=== PATIENT | female | born 1995 | race Hispanic/Latino ===

== ENCOUNTER 2016-07-26 16:08 | Emergency (ER) | payer OTHER ==
[~2016-07-26 16:08] MED LIST: IBUP800T23 PO; METH0.2T53 PO; MOTR200T44 PO; PERC5TAB6 PO; ZOFR20TA PO
[2016-07-26] MEDS ORDERED: PRENTAB9 PO (16:36)
== END 2016-07-26 16:22 | disposition left against medical advice (07) ==
LOC: M ED 16:08
DX: Z53.8 Procedure and treatment not carried out for other reasons (principal)

== ENCOUNTER 2016-07-26 16:29 | Outpatient (CLI) | payer OTHER ==
[~2016-07-26] VITALS: Ht 162.6 cm; Wt 81.0 kg
[2016-07-26] MEDS ORDERED: PRENTAB9 PO (16:36)
[2016-07-26 16:44] VITALS: BP 122/65
[2016-07-26 17:20] LABS: MEAN CORPUSCULAR HEMOGLOBIN 29.4 pg (27.0-33.0); MEAN CORPUSCULAR VOLUME 89.2 fl (80.0-96.0); RED CELL DISTRIBUTION WIDTH 12.5 % (11.5-14.5); WHITE BLOOD COUNT 9.9 K/mm3 (4.0-10.0)
[2016-07-26 18:16] LABS: ALBUMIN 2.6 GM/DL (3.2-5.2); ALKALINE PHOSPHATASE 94 U/L (45-117); ALT/SGPT 26 U/L (12-78); ANION GAP 7 MEQ/L (8-16); AST/SGOT 21 U/L (15-37); BILIRUBIN,TOTAL 0.2 MG/DL (0.2-1.0); BLOOD UREA NITROGEN 9 MG/DL (7-18); CALCIUM LEVEL 8.5 MG/DL (8.5-10.1); CARBON DIOXIDE LEVEL 28 MEQ/L (21-32); CHLORIDE LEVEL 105 MEQ/L (98-107); CREATININE FOR GFR 0.55 MG/DL (0.55-1.02); GLOMERULAR FILTRATION RATE > 60.0 (>60); GLUCOSE, FASTING 93 MG/DL (70-105); POTASSIUM SERUM 4.1 MEQ/L (3.5-5.1); SODIUM LEVEL 140 MEQ/L (136-145); TOTAL PROTEIN 6.9 GM/DL (6.4-8.2)
== END 2016-07-26 18:27 | disposition home or self-care (01) ==
LOC: M LDO 16:29
PROVIDERS: ATTEND Obstetrics & Gynecology
DX: O99.89 Other specified diseases and conditions complicating pregnancy, childbirth and the puerperium (principal); M62.830 Muscle spasm of back; Z3A.27 27 weeks gestation of pregnancy

== ENCOUNTER 2016-10-06 15:42 | Outpatient (CLI) | payer OTHER ==
[~2016-10-06] VITALS: Ht 162.6 cm; Wt 85.0 kg
[~2016-10-06 15:42] MED LIST changes: +PRENTAB9 PO
[2016-10-06 15:51] VITALS: BP 134/63
== END 2016-10-06 17:10 | disposition home or self-care (01) ==
LOC: M LDO 15:42
PROVIDERS: ATTEND Obstetrics & Gynecology
DX: O47.1 False labor at or after 37 completed weeks of gestation (principal); Z3A.38 38 weeks gestation of pregnancy

== ENCOUNTER 2016-10-07 03:21 | Inpatient (IN) | payer OTHER ==
[~2016-10-07] VITALS: Ht 162.6 cm; Wt 85.0 kg
[2016-10-07] VITALS (35 sets, daily range): BP systolic 102–133; BP diastolic 53–80
[2016-10-07 05:18] LABS: MEAN CORPUSCULAR HEMOGLOBIN 25.5 pg (27.0-33.0); MEAN CORPUSCULAR HGB CONC 31.6 g/dl (32.0-36.5); MEAN CORPUSCULAR VOLUME 80.8 fl (80.0-96.0); RED CELL DISTRIBUTION WIDTH 14.5 % (11.5-14.5); WHITE BLOOD COUNT 10.2 K/mm3 (4.0-10.0)
[2016-10-07] MEDS ORDERED: FENTANYL 2MCG/ML ROPIVACAINE 0.2% IN 0.9% NACL 200ML IVBAG As Ordered ONE (06:31)
[2016-10-07] MEDS ORDERED: FENTANYL/ROPIVACAINE/NACL BAG 200 ML EPIDURAL SCH (07:15)
[2016-10-07] MEDS ORDERED: ONDANSETRON 4MG/2ML VIAL (J2405) IV PRN (07:15)
[2016-10-07] MEDS ORDERED: ePHEDrine SULFATE 25 MG/5 ML(5MG/ML) SYRINGE IV PRN (07:15)
[2016-10-07] MEDS ORDERED: diphenhydrAMINE INJ 50MG/ML VIAL (J1200) IV PRN (07:15)
[2016-10-07] MEDS ORDERED: NALOXONE INJ 0.4 MG/1 ML VIAL (J2310) IV PRN (07:15)
[2016-10-07] MEDS ORDERED: OXYTOCIN 30 UNITS IN 0.9% NaCl 500ML IV BAG (J2590) As Ordered ONE (07:17)
[2016-10-07] MEDS ORDERED: LR 1,000 ML IV SCH (13:31)
[2016-10-07] MEDS ORDERED: OXYTOCIN DRIP 30 UNITS in APPROPRIATE DILUENT 1 EA IV SCH ×2 (13:45→14:13)
[2016-10-07] MEDS ORDERED: DIBUCAINE 1% OINTMENT 30GM TOP PRN (14:15)
[2016-10-07] MEDS ORDERED: DOCUSATE SODIUM 100 MG CAP PO PRN (14:15)
[2016-10-07] MEDS ORDERED: METHYLERGONOVINE MALEATE 0.2 MG TAB PO PRN (14:15)
[2016-10-07] MEDS ORDERED: ACETAMINOPHEN 500 MG TAB PO PRN (14:15)
[2016-10-07] MEDS ORDERED: MEASLES,MUMPS,RUBELLA VACCINE INJ (MMR-II) (90707) SC SCH (14:15)
[2016-10-07] MEDS: IBUPROFEN 800 MG TAB PO PRN (20:34)
[2016-10-08] MEDS: IBUPROFEN 800 MG TAB PO PRN (04:49)
[2016-10-08 06:03] VITALS: BP 127/71
[2016-10-08] MEDS: PRENATAL VITAMIN TAB PO SCH (08:54)
[2016-10-08 18:04] VITALS: BP 121/74
[2016-10-08 20:37] VITALS: BP 121/74
[2016-10-09] MEDS: IBUPROFEN 800 MG TAB PO PRN (01:30)
[2016-10-09 06:13] VITALS: BP 139/71
[2016-10-09] MEDS ORDERED: ACET50TA PO (07:40)
[2016-10-09] MEDS ORDERED: NUPE1OIN2 TOP (07:40)
[2016-10-09] MEDS ORDERED: COLA100C3 PO (07:40)
[2016-10-09] MEDS ORDERED: IBUP-1114 PO (07:40)
--- NOTE | 2016-10-09 08:37 | DSES ---
DATE OF ADMISSION: 10/07/2016 DATE OF DISCHARGE: This lady is a 21-year-old, 3 now para 1, admitted at 38 and 1 weeks' of gestation in spontaneous labor, spontaneous vaginal delivery live male weighing 7 pounds 13 ounces, scores of 8 and 9 at 1 and 5 minutes, respectively. She did have an epidural. She does not have an episiotomy. She had no issues . We discussed phlebitis, cystitis, mastitis, endometritis, cellulitis, diet, exercise, pain management, perineal, breast and wound care. She is planning on using Nexplanon as a method of control when she gets her 6-week checkup. Presently, she is normocephalic, atraumatic. Neck with full range of motion. Pupils equal and reactive to light. Blood pressure is 139/71, respirations are 16, pulse is 78 and temperature 98.3. Distal pulses symmetric. No evidence of DVT, PE or superficial phlebitis. No wheezes or rhonchi. Chest is clear bilaterally to the bases. Uterus is 2 below. Lochia is moderate. Perineum is intact. She has no issues of urgency, frequency, incontinence. She has no nausea, vomiting, diarrhea or constipation. No rashes or lesions. No arthralgia or myalgia. No complaints of cough, wheezes, shortness of breath or dyspnea on exertion. No chest pain. She is not bleeding. She is neuro complete. She has no MANAGER OF NETWORK issues. PAST MEDICAL AND SURGICAL HISTORY: Unremarkable. SOCIAL HISTORY: She does not smoke, drink or abuse drugs. She is . No domestic violence. She was given her medications for . She is going to have Nexplanon at her 6-week checkup. She was discharged delivered improved and appointment scheduling.
[2016-10-09] MEDS: PRENATAL VITAMIN TAB PO SCH (09:31)
== END 2016-10-09 16:30 | disposition home or self-care (01) | DRG 775 ==
LOC: M LDO 03:21 → M LDI 04:13 → M OBS 15:43
PROVIDERS: ADMIT Obstetrics & Gynecology; ATTEND Obstetrics & Gynecology
PROC: 10E0XZZ Delivery of Products of Conception, External Approach (ICD-10-PCS; principal; 2016-10-07)
DX: O80 Encounter for full-term uncomplicated delivery (principal); Z37.0 Single live birth; Z3A.38 38 weeks gestation of pregnancy

== ENCOUNTER 2017-03-25 10:02 | Emergency (ER) | payer OTHER ==
[~2017-03-25] VITALS: Ht 162.6 cm; Wt 85.0 kg
[2017-03-25 10:02] VITALS: BP 126/62
[~2017-03-25 10:02] MED LIST changes: +ACET50TA PO; +COLA100C5 PO; +IBUP-1114 PO; +IBUP1TAB7 PO; -IBUP800T23 PO; +NUPE1OIN2 TOP; +PERC5TAB12 PO; -PERC5TAB6 PO
[2017-03-25] MEDS ORDERED: NORA0.35 (10:12)
[2017-03-25] MEDS ORDERED: NAPR500T PO (10:17)
[2017-03-25] MEDS ORDERED: CYCL10TA PO (10:17)
== END 2017-03-25 10:52 | disposition home or self-care (01) ==
LOC: M ED 10:02
DX: G89.29 Other chronic pain (principal); M54.5 Low back pain; F99 Mental disorder, not otherwise specified; Z79.899 Other long term (current) drug therapy; Z91.89 Other specified personal risk factors, not elsewhere classified; Z91.013 Allergy to seafood

== ENCOUNTER → 2017-04-07 | Outpatient (CLI) | payer OTHER ==
[~2017-04-07] MED LIST changes: +CYCL10TA PO; +NAPR500T PO; +NORA0.35
--- NOTE | 2017-04-07 08:55 | REP ---
MAXILLOFACIAL CT WITHOUT CONTRAST: HISTORY: Septal deviation. Minimal mucosal thickening is present in the left maxillary sinus. The remaining sinuses are clear. The osteomeatal units are patent. The middle and inferior nasal turbinates are partially paradoxical. There is very minimal deviation of the nasal septum to the right. A small spur is present arising from the left side of the nasal septum. The cribriform plate, medial rock of the orbits and optic canals are intact. The carotid canals form a segment of the posterolateral rock of the sphenoid sinus. The sphenoid sinus septa insert into the internal carotid canal rock. IMPRESSION: Sinus mucosal thickening as described above. Signed by Nishant Jacobsen MD 04/07/2017 08:59 A
== END ==
LOC: M RAD 07:09
PROVIDERS: ATTEND Otolaryngology
DX: J34.2 Deviated nasal septum (principal)

== ENCOUNTER 2017-09-08 11:32 | Emergency (ER) | payer OTHER | END 2017-09-08 12:17 | disposition home or self-care (01) | LOC: M ED 11:32 | DX: M62.830 Muscle spasm of back (principal); W00.9XXA Unspecified fall due to ice and snow, initial encounter; Y92.59 Other trade areas as the place of occurrence of the external cause; M54.9 Dorsalgia, unspecified; G89.29 Other chronic pain; F33.9 Major depressive disorder, recurrent, unspecified; Z88.8 Allergy status to other drugs, medicaments and biological substances; Z91.013 Allergy to seafood | CPT/HCPCS: 99282 ==

== ENCOUNTER 2018-03-27 09:59 | Emergency (ER) | payer OTHER ==
[2018-03-27] MEDS: ACETAMINOPHEN TAB 650MG DOSE (2X325MG) PO (10:37)
[2018-03-27 10:41] LABS: BASO % 0.3 % (0.0-1.0); EOS # 0.1 10^3/uL (0.0-0.50); EOS % 0.8 % (0.0-3.0); HEMOGLOBIN 10.7 g/dl (12.0-15.5); IMMATURE GRANULOCYTE % 1.5 % (0-3.0); LYMPH # 1.3 10^3/uL (1.5-6.5); LYMPH % 17.3 % (24.0-44.0); MEAN CORPUSCULAR HEMOGLOBIN 29.4 pg (27.0-33.0); MEAN CORPUSCULAR HGB CONC 34.5 g/dl (32.0-36.5); MEAN CORPUSCULAR VOLUME 85.2 fl (80.0-96.0); MONO # 0.8 10^3/uL (0.0-0.8); MONO % 10.2 % (0.0-5.0); NEUTROPHILS # 5.3 10^3/uL (1.8-7.7); NEUTROPHILS % 69.9 % (36.0-66.0); PLATELET COUNT, AUTOMATED 237 10^3/uL (150-450); RED BLOOD COUNT 3.64 10^6/uL (4.00-5.40); RED CELL DISTRIBUTION WIDTH 12.7 % (11.5-14.5); WHITE BLOOD COUNT 7.6 10^3/uL (4.0-10.0)
[2018-03-27 10:57] LABS: FIBRINOGEN 556 MG/DL (221-452); INR 1.03; PARTIAL THROMBOPLASTIN TIME 27.6 SECONDS (25.4-37.6); PROTHROMBIN TIME 13.6 SECONDS (12.1-14.4)
== END 2018-03-27 10:50 | disposition admitted as inpatient to this hospital (09) ==
LOC: M ED 09:59
DX: Z04.1 Encounter for examination and observation following transport accident (principal); O99.89 Other specified diseases and conditions complicating pregnancy, childbirth and the puerperium; R10.2 Pelvic and perineal pain; Z3A.29 29 weeks gestation of pregnancy; Z88.8 Allergy status to other drugs, medicaments and biological substances; Z91.013 Allergy to seafood
CPT/HCPCS: 85384

== ENCOUNTER 2018-03-27 11:01 | Outpatient (CLI) | payer OTHER | END 2018-03-27 17:00 | disposition home or self-care (01) | LOC: M LDO 11:01 | DX: Z04.3 Encounter for examination and observation following other accident (principal); O26.893 Other specified pregnancy related conditions, third trimester; R10.32 Left lower quadrant pain; Z3A.29 29 weeks gestation of pregnancy | CPT/HCPCS: G0463 ==

== ENCOUNTER 2018-05-05 06:11 | Outpatient (CLI) | payer OTHER ==
[2018-05-05 07:31] LABS: BEDSIDE GLUCOSE 89 MG/DL (70-105)
== END 2018-05-05 07:41 | disposition home or self-care (01) ==
LOC: M LDO 06:11
DX: O26.893 Other specified pregnancy related conditions, third trimester (principal); R10.2 Pelvic and perineal pain; O47.03 False labor before 37 completed weeks of gestation, third trimester; Z3A.35 35 weeks gestation of pregnancy
CPT/HCPCS: 59025

== ENCOUNTER 2018-05-26 05:03 | Inpatient (IN) | payer OTHER ==
[2018-05-26 07:04] LABS: BASO % 0.4 % (0.0-1.0); EOS % 0.5 % (0.0-3.0); HEMATOCRIT 32.6 % (36.0-47.0); HEMOGLOBIN 10.5 g/dl (12.0-15.5); IMMATURE GRANULOCYTE % 0.5 % (0-3.0); LYMPH # 1.6 10^3/uL (1.5-6.5); LYMPH % 19.9 % (24.0-44.0); MEAN CORPUSCULAR HEMOGLOBIN 25.7 pg (27.0-33.0); MEAN CORPUSCULAR HGB CONC 32.2 g/dl (32.0-36.5); MEAN CORPUSCULAR VOLUME 79.9 fl (80.0-96.0); MONO # 0.7 10^3/uL (0.0-0.8); MONO % 8.8 % (0.0-5.0); NEUTROPHILS # 5.6 10^3/uL (1.8-7.7); NEUTROPHILS % 69.9 % (36.0-66.0); PLATELET COUNT, AUTOMATED 205 10^3/uL (150-450); RED BLOOD COUNT 4.08 10^6/uL (4.00-5.40); RED CELL DISTRIBUTION WIDTH 14.2 % (11.5-14.5); WHITE BLOOD COUNT 7.9 10^3/uL (4.0-10.0)
[2018-05-26] MEDS: LACTATED RINGER'S 1000 ML IV (07:19)
[2018-05-26] MEDS ORDERED: FENTANYL 2MCG/ML ROPIVACAINE 0.2% IN 0.9% NACL 200ML IVBAG As Ordered (07:45)
[2018-05-26] MEDS ORDERED: OXYTOCIN 30 UNITS IN 0.9% NaCl 500ML IV BAG (J2590) As Ordered (07:54)
[2018-05-26] MEDS: LR 1,000 ML IV ×2 (08:28→16:24)
[2018-05-26] MEDS ORDERED: REFRIGERATOR IV KEYS XX (09:15)
[2018-05-26] MEDS: FENTANYL/ROPIVACAINE/NACL BAG 200 ML EPIDURAL (09:15)
[2018-05-26] MEDS ORDERED: NALOXONE INJ 0.4 MG/1 ML VIAL (J2310) IV (09:15)
[2018-05-26] MEDS ORDERED: EPIDURAL COMMENT XX (09:15)
[2018-05-26] MEDS ORDERED: EPIDURAL/PCA KEYS XX (09:15)
[2018-05-26] MEDS ORDERED: ONDANSETRON 4MG/2ML VIAL (J2405) IV (09:15)
[2018-05-26] MEDS ORDERED: diphenhydrAMINE INJ 50MG/ML VIAL (J1200) IV (09:15)
[2018-05-26] MEDS: OXYTOCIN DRIP 30 UNITS in APPROPRIATE DILUENT 1 EA IV ×3 (10:39→18:17)
[2018-05-26] MEDS ORDERED: MEASLES,MUMPS,RUBELLA VACCINE INJ (MMR-II) (90707) SC (18:30)
[2018-05-26] MEDS ORDERED: METHYLERGONOVINE MALEATE 0.2 MG TAB PO (18:30)
[2018-05-26] MEDS ORDERED: DIBUCAINE 1% OINTMENT 30GM TOP (18:30)
[2018-05-26] MEDS ORDERED: PROMETHAZINE 25 MG TAB PO (18:30)
[2018-05-26] MEDS: DOCUSATE SODIUM 100 MG CAP PO (21:08)
[2018-05-26] MEDS: IBUPROFEN 800 MG TAB PO (21:13)
[2018-05-27] MEDS: ACETAMINOPHEN 500 MG TAB PO (00:26)
[2018-05-27] MEDS: IBUPROFEN 800 MG TAB PO ×2 (05:35→22:07)
[2018-05-27] MEDS: DOCUSATE SODIUM 100 MG CAP PO ×2 (08:14→20:19)
[2018-05-27] MEDS: PRENATAL VITAMINS CHEWABLE TABLET PO (08:14)
[2018-05-27] MEDS: CYCLOBENZAPRINE 10 MG TAB PO (23:42)
[2018-05-28] MEDS: PRENATAL VITAMINS CHEWABLE TABLET PO (07:50)
[2018-05-28] MEDS: DOCUSATE SODIUM 100 MG CAP PO (07:50)
== END 2018-05-28 12:10 | disposition home or self-care (01) | DRG 807 ==
LOC: M LDO 05:03 → M LDI 06:37 → M OBS 19:56
PROVIDERS: Obstetrics & Gynecology
PROC: 10E0XZZ Delivery of Products of Conception, External Approach (ICD-10-PCS; principal; 2018-05-26)
DX: O69.81X0 Labor and delivery complicated by cord around neck, without compression, not applicable or unspecified (principal); Z37.0 Single live birth; Z3A.38 38 weeks gestation of pregnancy; O71.82 Other specified trauma to perineum and vulva

== ENCOUNTER 2018-06-07 15:23 | Emergency (ER) | payer OTHER | END 2018-06-07 16:05 | disposition home or self-care (01) | LOC: M ED 15:23 | DX: J06.9 Acute upper respiratory infection, unspecified (principal); Z88.8 Allergy status to other drugs, medicaments and biological substances; Z91.013 Allergy to seafood | CPT/HCPCS: 87880 ==

== ENCOUNTER → 2019-01-13 | Outpatient (CLI) | payer OTHER ==
[~2019-01-13] MED LIST changes: -ACET50TA PO; +DIBU1OIN TOP; +IBUP-1022 PO; +MAPA500T2 PO; +NAPR-837 PO; -NAPR500T PO; +PSEU60TA23 PO; +ROBA500T PO; +VENTAER INH; -ZOFR20TA PO; +ZOFR4TAB16 PO
--- NOTE | 2019-01-18 18:13 | SLEEPCENT ---
DATE OF PROCEDURE: 01/13/2019 ORDERED BY: Alvin Pablo PA-C Nocturnal polysomnography was performed for evaluation of sleep physiology in this patient with a history of excessive somnolence and nonrestorative sleep. 8 hours and 29 minutes of data were reviewed. There were 463.5 minutes of sleep identified. Sleep latency was mildly prolonged at 22 minutes. REM latency was prolonged at 149 minutes. Sleep architecture was fairly good with four REM cycles. Overall sleep efficiency was 92.2%. The electrocardiogram showed a sinus rhythm with a wandering baseline, average heart rate 58 beats per minute. EEG showed reasonably normal waveforms for awake and sleep. There were 40 respiratory events identified of 10 seconds in duration or greater for an apnea-hypopnea index of 5.2. The events were primarily obstructive, not exclusive to any posture but more frequent in the supine position. Snoring was also noted. Respiratory related arousals occurred 7.5 times per hour. There were no oxygen desaturations below 90%. Some limb activity was noted, but limb movement arousal index was low. IMPRESSION: Mild positional obstructive sleep apnea syndrome (G47.33). RECOMMENDATIONS: Sleep position retraining for avoidance of the supine posture may be sufficient to address the patient's issues. If sleep symptoms persist, consideration should be given to returning the patient to the sleep disorder center for pressure titration.
== END ==
LOC: M SLEEP 19:48
PROVIDERS: ATTEND Physician Assistant
DX: G47.30 Sleep apnea, unspecified (principal)

== ENCOUNTER → 2019-07-07 | Outpatient (CLI) | payer OTHER ==
[~2019-07-07] MED LIST changes: +MELA3TAB41; +SERT50TA29
--- NOTE | 2019-07-09 11:37 | SLEEPCENT ---
DATE OF PROCEDURE: 07/07/2019 ORDERED BY: LAURA Vidal Nocturnal polysomnography was performed for the titration of pressure therapy in this patient with obstructive sleep apnea syndrome. For testing the patient was fit with a Resp[employer]ics Vicki View full-face mask of medium size; 4 cm of water pressure were applied to the circuit and the lights were extinguished. 8 hours and 23 minutes of data were reviewed. There were 407.5 minutes of sleep identified. Sleep latency was prolonged at 69 minutes. Rapid eye movement (REM) latency was normal at 96.5 minutes. Sleep architecture improved with optimal pressure therapy. Overall sleep efficiency was 81.9%. The patient's electrocardiogram showed sinus rhythm with an average heart rate of 64 beats per minute. Electroencephalogram (EEG) showed reasonably normal waveforms for awake and sleep. Respiratory events were reasonably well palliated with CPAP at a pressure of +10. IMPRESSION: Obstructive sleep apnea syndrome (G47.33). RECOMMENDATIONS: Nightly use of pressure therapy 10 cm of water.
== END ==
LOC: M SLEEP 20:07
PROVIDERS: ATTEND Physician Assistant
DX: G47.33 Obstructive sleep apnea (adult) (pediatric) (principal)

== ENCOUNTER 2020-11-13 21:49 | Emergency (ER) | payer OTHER ==
[~2020-11-13] VITALS: Ht 162.6 cm; Wt 84.6 kg
[~2020-11-13 21:49] MED LIST changes: +CYCL-707 PO; -CYCL10TA PO; +MELA3TAB30; -MELA3TAB41
[2020-11-14] MEDS ORDERED: MAGIC MOUTHWASH SUSPENSION BTL SS STA (00:57)
[2020-11-14] MEDS ORDERED: KETOROLAC 60MG 2ML VIAL IM ONE (01:00)
[2020-11-14 01:31] LABS: BASO % 0.2 % (0.0-1.0); EOS % 0.2 % (0.0-3.0); HEMATOCRIT 37.7 % (36.0-47.0); HEMOGLOBIN 12.7 g/dl (12.0-15.5); LYMPH # 1.9 10^3/uL (1.5-5.0); LYMPH % 20.5 % (24.0-44.0); MEAN CORPUSCULAR HEMOGLOBIN 29.5 pg (27.0-33.0); MEAN CORPUSCULAR HGB CONC 33.7 g/dl (32.0-36.5); MEAN CORPUSCULAR VOLUME 87.7 fl (80.0-96.0); MONO # 0.6 10^3/uL (0.0-0.8); MONO % 6.8 % (2.0-8.0); NEUTROPHILS # 6.8 10^3/uL (1.5-8.5); PLATELET COUNT, AUTOMATED 285 10^3/uL (150-450); WHITE BLOOD COUNT 9.4 10^3/uL (4.0-10.0)
[2020-11-14] MEDS: ALBUTEROL 90 MCG/ACT 8GM HFA INHALER INH SCH ×3 (01:46→02:26)
[2020-11-14] MEDS ORDERED: methylPREDNISolone 125MG 2ML VIAL IV ONE (02:50)
[2020-11-14] MEDS ORDERED: diphenhydrAMINE 50MG/ML VIAL (J1200) IV ONE (02:50)
--- NOTE | 2020-11-14 02:53 | REPVR ---
PROCEDURE INFORMATION: Exam: XR Chest Exam date and time: 11/14/2020 1:55 AM Age: 25 years old Clinical indication: Cough and fever; Additional info: Cough, fever, SOB TECHNIQUE: Imaging protocol: XR of the chest. Views: 1 view. COMPARISON: No relevant prior studies available. FINDINGS: Lungs: Asymmetric infrahilar opacity in the right lung base. Lungs are otherwise clear. Pleural spaces: Unremarkable. No pleural effusion. No pneumothorax. Heart/Mediastinum: Unremarkable. No cardiomegaly. Bones/joints: Unremarkable. IMPRESSION: Asymmetric opacity in the right lung base may be due to airspace consolidation or lobar atelectasis. Chest CT follow-up is recommended. Electronically signed by: Abebe Begum On 11/14/2020 02:52:30 AM
[2020-11-14] MEDS ORDERED: ISOVUE-370 76% 100ML VIAL As Ordered ONE (03:05)
--- NOTE | 2020-11-14 03:41 | REPVR ---
PROCEDURE INFORMATION: Exam: CTA Chest With Contrast Exam date and time: 11/14/2020 2:50 AM Age: 25 years old Clinical indication: Shortness of breath; Additional info: SOB, tachbrooklynn, randal TECHNIQUE: Imaging protocol: Computed tomographic angiography of the chest with contrast. 3D rendering (Not supervised by radiologist): MIP and/or 3D reconstructed images were created by the technologist. Radiation optimization: All CT scans at this facility use at least one of these dose optimization techniques: automated exposure control; mA and/or kV adjustment per patient size (includes targeted exams where dose is matched to clinical indication); or iterative reconstruction. Contrast material: ISO; Contrast volume: 75 ml; Contrast route: INTRAVENOUS (IV); COMPARISON: CR PORTABLE CHEST X-RAY 11/14/2020 1:47 AM FINDINGS: Pulmonary arteries: Normal. No pulmonary emboli. Aorta: Unremarkable. No aortic aneurysm. No aortic dissection. Lungs: No airspace infiltrates or masses. No atelectasis. Airways are clear. Pleural spaces: Unremarkable. No pneumothorax. No pleural effusion. Heart: Unremarkable. No cardiomegaly. No pericardial effusion. Lymph nodes: Unremarkable. No enlarged lymph nodes. Bones/joints: Unremarkable. No acute fracture. Soft tissues: Unremarkable. IMPRESSION: 1. No pulmonary embolism. 2. No acute findings or airspace consolidation. Right basilar opacity seen on the previous radiographs appears to be due to somewhat prominent right atrium. Electronically signed by: Abebe Begum On 11/14/2020 03:41:12 AM
[2020-11-14 04:40] VITALS: BP 112/60
--- NOTE | 2020-11-14 06:07 | ECGEPIP ---
[facility] - ED Test Date: 2020-11-14 Pat Name: RUTHY PELAYO Department: Room: - Gender: Female Traveling Electrician: sb : 1995 Requested By: TERRI Edmonds Order Number: [id number] Reading MD: Francisco J Salazar Measurements Intervals [place] Rate: 122 P: 61 IA: 188 QRS: 64 QRSD: 76 T: 43 QT: 298 QTc: 424 Interpretive Statements Sinus tachycardia POSSIBLE INCOMPLETE RIGHT BUNDLE BRANCH BLOCK NO PRIORS FOR COMPARISON Electronically Signed on 11-14-2020 6:06:58 EDT by Francisco J Salazar
== END 2020-11-14 04:41 | disposition home or self-care (01) ==
LOC: M ED 21:49
DX: J06.9 Acute upper respiratory infection, unspecified (principal); B34.9 Viral infection, unspecified; R94.31 Abnormal electrocardiogram [ECG] [EKG]; Z91.013 Allergy to seafood; Z88.8 Allergy status to other drugs, medicaments and biological substances
CPT/HCPCS: 71045; 71275; 80047; 84702; 85025; 85379; 87798; 87880; 93005; 96372; 96374; 96375; 99284; J1200; J1885; J2930; Q9967